=== PATIENT | female | born 1960 | race African-American/Black ===

== ENCOUNTER 2016-10-06 16:25 | Inpatient (IN) | payer MEDICARE, OTHER ==
--- NOTE | ~2016-10-06 | DS ---
Discharge Summary [facility] [address] [place]. [address] NAME: SUMAN PEREZ : 62 STATUS : DIS IN PAT#: [id number] AGE: 56 ADM/REG DATE : 10/06/16 MR#: [id number] REPORT SERV DATE: 10/27/16 DICTATED BY: ZOEY BRIDGES DATE: 10/26/16 REPORT STATUS : Draft TRANSCRIBED BY: CHELSY DATE: 10/26/16 Data Collection from hospitalization DISCHARGE DIAGNOSES: 1. End-stage renal disease. 2. Anemia. 3. Nausea and vomiting-resolved. 4. Clostridium difficile. 5. Angioedema-presumed secondary to Augmentin. 6. Diabetes. 7. Hypertension. 8. Recent neck abscess status post incision and drainage. 9. Congestive heart failure-ejection fraction 30%. 10.Gastroparesis. CONSULTATIONS: Dr. Wiliam Marie. NEDA Sinclair. Dr. Serg Estrella. Dr. Josr Zimmerman. PROCEDURES PERFORMED: 1. Colonoscopy, 10/12/2016. 2. Upper GI endoscopy, 10/12/2016. 3. CT scan of the abdomen and pelvis without contrast, 10/09/2016. PATHOLOGY: Esophagus biopsy-squamocolumnar junctional mucosa with mild chronic inflammation of the columnar component. No intestinal metaplasia or dysplasia. DISCHARGE MEDICATIONS: Norvasc 5 mg daily as instructed; Halfprin 81 mg daily; Lipitor 20 mg at bedtime; Coreg 12.5 mg twice a day as instructed; Pletal 50 mg twice a day; Lanoxin 0.125 mg on Tuesday, Tuesday, and Tuesday as instructed; Flonase nasal spray two sprays in each nostril daily; NovoLog injection insulin as instructed; Reglan 5 mg at 7:30 a.m., noon, and 5:30 p.m.; Mycostatin topical powder as directed topically three times a day; Protonix 40 mg at 6:30 a.m. and 4:30 p.m.; Requip 2 mg at bedtime; Stresstabs one tablet daily; Flagyl 500 mg every eight hours-stop, 10/26/2016; Levemir 20 units subcutaneously daily as instructed; Levemir 10 units subcutaneously at bedtime as instructed; Combivent one puff via inhaler twice a day; DuoNeb inhaled solution one nebulized inhaler at 8 a.m., noon, 5 p.m., and 9 p.m.; heparin 5000 units as instructed. CONDITION AT DISCHARGE: Stable. DISPOSITION: The patient was discharged to [facility] on a soft/diabetic/renal diet with activities as instructed. She would follow up with Dr. Zimmerman two weeks following discharge regarding scalp abscess at open wound. HOSPITAL COURSE: This is a 56-year-old female, who has end-stage renal disease and dialyzes on Mondays, Wednesdays, and Fridays. She presented to the clinic with lip swelling on the day of this admission. She had recently been at [facility] with a neck abscess and underwent drainage by Dr. Hinton. Infectious Disease had seen the patient and she was sent out on Augmentin, and it was felt that this may be the cause/culprit for the Discharge Summary [address] [address] NAME: SUMAN PEREZ : 62 STATUS : DIS IN PAT#: [id number] AGE: 56 ADM/REG DATE : 10/06/16 MR#: [id number] REPORT SERV DATE: 10/27/16 DICTATED BY: ZOEY BRIDGES DATE: 10/26/16 REPORT STATUS : Draft TRANSCRIBED BY: CHELSY DATE: 10/26/16 angioedema. She did experience some slight shortness of breath, but no wheezing. O2 saturations were stable. Given the significant angioedema, she was admitted to the hospital for further evaluation and treatment. Upon admission, she was started on Solu-Medrol and Benadryl. The following day, she was seen by Dr. Wiliam Marie regarding the angioedema, possibly secondary to a reaction to Augmentin. Her angioedema worsened after admission here and she had been transferred to the CCU. She was given epinephrine and Solu-Medrol and had marked improvement overnight. She did not report any fevers or chills. She said her neck wounds were feeling better. White blood cell count was now 13.9 after receiving steroids. It was felt this certainly possibly could be a delayed reaction to Augmentin with regard to the recent admission at [facility] for a neck abscess. He did not believe she really needed further systemic antibiotics as she was two weeks out from her surgical drainage of the abscess and examination of the wound did not show evidence of significant ongoing infection or need for further antibiotics. It was felt she would need ongoing good wound care. She was also seen by Dr. Serg Estrella. She had received IV Solu-Medrol during the night she had been placed on sliding scale insulin. She received IV Benadryl. Epinephrine had also been given. Her Augmentin had been stalked. She had been placed on strict n.p.o. status. It was felt that she would need a swallow evaluation. Later that day, she said she was feeling much better. She had no significant shortness of breath. She received one unit of blood. She was seen by Dr. Evangelista Zimmerman. The patient had undergone incision and drainage of neck abscess on 09/23/2016. There was concern due to her elevated white blood cell count. The abscess seemed to have been well drained. She was going to follow up as scheduled with Dr. Zimmerman. On the , hemodialysis therapy was performed. She was transfused one unit of packed red blood cells. She did have some swelling of her tongue. She did receive a dose of Solu- Medrol. Benadryl was also given. On 10/09/2016, she complained of some abdominal pain and belching. She did have some nausea. She did have a bowel movement. She was felt to be improving daily. On the , her nausea had improved. Her appetite was better. Her abdominal pain had improved as well. Her lip swelling had improved. Proton pump inhibitor was continued. On 10/11/2016, she was seen by Sourav Crabtree for evaluation and management of anemia and Hemoccult-positive stool. One of two stools were found to be Hemoccult positive. She denied any obvious signs of GI bleeding. She had no melena or hematochezia. She had undergone an EGD in the past. She said findings including gastroparesis which she can typically manage with Reglan and diet modification. She did have some abdominal pain. She said she was feeling better at this time. It was felt that she would need to undergo an EGD and colonoscopy. She agreed to proceed. The next day, she was taken to the endoscopic suite, where she underwent colonoscopy by Dr. Chester Watts. The preparation of the colon was poor. There were multiple 5-9 mm nonbleeding polyps in the sigmoid colon and the descending colon and in the ascending colon. Resection was not attempted given the exceedingly poor prep and unsatisfactorily visualization. The exam was otherwise normal on direct and retroflexion views. The exam was suboptimal due to patient's preparation. Dr. Watts also performed an upper GI endoscopy, impression included LA grade B esophagitis- oozing blood, this was biopsied. There was hematin-altered blood/coffee ground-like material-in the gastric fundus. The examination was otherwise normal. She had been Discharge Summary [address] [address] NAME: SUMAN PEREZ : 62 STATUS : DIS IN PAT#: [id number] AGE: 56 ADM/REG DATE : 10/06/16 MR#: [id number] REPORT SERV DATE: 10/27/16 DICTATED BY: ZOEY BRIDGES DATE: 10/26/16 REPORT STATUS : Draft TRANSCRIBED BY: CHELSY DATE: 10/26/16 evaluated by Physical Therapy and Occupational Therapy. On postop day 1, Levemir had been decreased. Heparin was held. Evening Levemir was decreased. Stool was checked for blood and C difficile. On the , she continued to improve. She had mild edema. She was found to be C difficile positive. The drain was removed from her neck. The wound was healing well. She did receive a dose of Diflucan. Flagyl was also given. Discharge planning was performed. On 10/16/2016, she was alert and cooperative. She had good pain control. She had no edema. Discharge instructions were given. Flagyl was continued. Due to her improved and stable condition, she was discharged to [facility] with the above- stated instructions. Information collected by: Ling Abdul I submit the above information as my discharge summary. ANA LILIA/CHELSY Zoey Bridges M.D. / [id number] CC: Jay Concepcion, M.D. [place] Gutierrez M.D. Destin Griffin-Trussell, [facility]
--- NOTE | ~2016-10-06 | EGD ---
EGD REPORT [facility] [address] [place] [address] NAME: SUMAN PEREZ : 62 STATUS : ADM IN PAT#: [id number] AGE: 56 ADM/REG DATE : 10/06/16 MR#: [id number] REPORT SERV DATE: 10/12/16 DICTATED BY: CHESTER SCHWAB DATE: 10/12/16 REPORT STATUS : Draft [facility]ANSCRIBED [facility]: [facility] DATE: 10/12/16 Endoscopy Center Patient Name: Suman Perez Date of : 1960 Attending MD: CHESTER SCHWAB MD Procedure Date No Time: 10/12/2016 Procedure: Upper GI endoscopy Indications: Anemia, Heme positive stool Referring MD: Casey Mora Medicines: Monitored Anesthesia Care Complications: No immediate complications. Estimated blood loss: Minimal. Procedure: Pre-Anesthesia Assessment: - ASA Grade Assessment: III - A patient with severe systemic disease. After obtaining informed consent, the endoscope was passed under direct vision. Throughout the procedure, the patient's blood pressure, pulse, and oxygen saturations were monitored continuously. The GIF [id number] was introduced through the mouth, and advanced to the second part of duodenum. The upper GI endoscopy was accomplished without difficulty. The patient tolerated the procedure well. Findings: LA Grade B (one or more mucosal breaks greater than 5 mm, not extending between the tops of two mucosal folds) esophagitis with bleeding was found at the gastroesophageal junction. Biopsies were taken with a cold forceps for histology. Estimated blood loss was minimal. Hematin (altered blood/chzgph-ghzpad-cuxn material) was found in the gastric fundus. The examined duodenum was normal. The exam was otherwise without abnormality. Impression: - LA Grade B esophagitis - Oozing blood. Biopsied. - Hematin (altered blood/fqmhrt-hxaeda-uwlx material) in the gastric fundus. - The examination was otherwise normal. Recommendation: - Return patient to [facility] for ongoing care. - Soft diet today. - Use Protonix (pantoprazole) 40 mg PO BID for 4 weeks. - Await pathology results. Procedure Code(s): --- Professional --- EGD REPORT [facility] [address] [place]. [address] NAME: SUMAN PEREZ : 62 STATUS : ADM IN [facility]#: [id number] AGE: 56 ADM/REG DATE : 10/06/16 MR#: [id number] REPORT SERV DATE: 10/12/16 DICTATED BY: CHESTER SCHWAB DATE: 10/12/16 REPORT STATUS : Draft TRANSCRIBED BY: [employer] DATE: 10/12/16 [id number], Esophagogastroduodenoscopy, flexible, transoral; with biopsy, single or multiple Diagnosis Code(s): --- Professional --- K20.9, Esophagitis, unspecified K92.2, Gastrointestinal hemorrhage, unspecified D64.9, Anemia, unspecified R19.5, Other fecal abnormalities CPT copyright 2013 [employer]. All rights reserved. The codes documented in this report are preliminary and upon want ad clerk review may be revised to meet current compliance requirements. Chester Schwab MD CHESTER SCHWAB MD 10/12/2016 11:40 AM This report has been signed electronically. Number of Addenda: 0 Note Initiated On: 10/12/2016 9:47 AM Scope Withdrawal Time 0 hours 0 minutes 0 seconds [address] [place] [address]
--- NOTE | ~2016-10-06 | CN ---
Consultation Report [facility] [address] [place]. [address] NAME: SUMAN PEREZ : 62 STATUS : ADM IN PAT#: [id number] AGE: 56 ADM/REG DATE : 10/06/16 MR#: [id number] REPORT SERV DATE: 10/07/16 DICTATED BY: MARIMAR MARIE DATE: 10/07/16 REPORT STATUS : Draft TRANSCRIBED BY: MODL DATE: 10/07/16 INFECTIOUS DISEASE CONSULTATION DATE OF CONSULTATION: 10/07/2016 REASON FOR CONSULTATION: Angioedema, possibly secondary to reaction to Augmentin. HISTORY OF PRESENT ILLNESS: This is a 56-year-old female with past medical history notable for end-stage renal disease on chronic dialysis along with diabetes, hypertension, coronary artery disease. She was admitted to [facility] on 09/22/2016 with an abscess of her posterior neck and occipital area. She underwent incision and drainage by Dr. Zimmerman and his surgical asst on 09/23/2016, and a repeat procedure on 09/28/2016 because of hematoma. Cultures grew just an anaerobic gram-negative becky, not identified along with some coagulase negative Staph. When she was discharged on 10/01/2016, she was prescribed Augmentin and went to a local rehab facility. While on dialysis yesterday, she was noted to be developing marked swelling of her lips and tongue, and was sent here for admission. Her angioedema worsened while after admission here and she was transferred to the CCU. She was given epinephrine and Solu-Medrol and has had marked improvement overnight. She reports no fevers or chills. The neck wounds, she says are feeling better. PAST MEDICAL HISTORY: In addition to the above is notable for coronary artery bypass surgery along with diabetic gastroparesis and renal osteodystrophy. She also has a chronic skin condition, which has been biopsied by Dermatology in the past, separate from this more acute abscess problem. ALLERGIES: LISTED ARE MORPHINE, PROMETHAZINE, AND STADOL ALONG WITH INTOLERANCE TO DEMEROL. MEDICATIONS: At the time of admission in addition to the Augmentin included Norvasc, DuoNeb, aspirin, vitamin B complex, folic acid, calcium carbonate, Coreg, Pletal, digoxin, insulin, Combivent, Cozaar, Reglan, Nasonex, Protonix, Requip, Crestor. SOCIAL HISTORY: Nonsmoker, nondrinker. FAMILY HISTORY: Noncontributory. REVIEW OF SYSTEMS: Otherwise, negative except she has had some loose stools 2 to 3 a day over the past week or so without significant abdominal pain or cramping. She is hungry this morning. She denies any shortness of breath. PHYSICAL EXAMINATION: VITAL SIGNS: The patient weighs 74 kg. She is afebrile. Blood pressure 107/60, pulse 75, respiratory rate 16. GENERAL: She is alert, no acute distress. Consultation Report [place] [id number] [facility] [place]. [address] NAME: SUMAN PEREZ : 62 STATUS : ADM IN [facility]#: [id number] AGE: 56 ADM/REG DATE : 10/06/16 MR#: [id number] REPORT SERV DATE: 10/07/16 DICTATED BY: MARIMAR MARIE DATE: 10/07/16 REPORT STATUS : Draft TRANSCRIBED BY: CHELSY DATE: 10/07/16 HEAD AND NECK: Shows edema of her lips and of her tongue, oral cavity is without thrush, and exam of the neck reveals a surgical wound with a [place] drain remaining in place with a little bit of drainage on the dressing that was over it in the lower occipital, upper cervical area with a smaller and more superficial wound at the base of the left posterior neck. There is no surrounding erythema. No significant induration or fluctuance. No tenderness to palpation around these wounds. LUNGS: Clear to auscultation. CARDIAC: Regular rate and rhythm. Normal S1, S2 with soft systolic ejection murmur, left sternal border. ABDOMEN: Soft and nontender. Bowel sounds are normal. EXTREMITIES: Show trace edema. SKIN: Shows multiple hyperpigmented chronic-appearing papules and nodules. LABORATORY STUDIES: White blood cell count yesterday was 9.6, today 13.9 after steroids, hemoglobin 7.9, platelets 392, hemoglobin A1c 10.2. Albumin 2.5, bilirubin 1.3. Alkaline phosphatase 251. Her alkaline phosphatase on 09/22/2016 was 346. Chest x-ray is negative. IMPRESSION: Angioedema, reaction, uncertain etiology. Certainly, this is possibly a delayed reaction to Augmentin. With regard to this recent admission at [facility] for the neck abscess, I do not believe she really needs further systemic antibiotics as she is two weeks out from her surgical drainage of the abscess and examination of the wounds today do not show evidence of significant ongoing infection in need of further antibiotics. I think she needs just ongoing good wound care. I discussed with Dr. Mcdonald who took care of her at [facility]. We will ask Dr. Zimmerman to reassess regarding the ongoing need or not for the Vikas drain. AGUS/CHELSY Marimar Marie M.D. / [id number] CC: Jay Concepcion M.D.
--- NOTE | ~2016-10-06 | EGD ---
EGD REPORT [facility] [address] [place]. [address] NAME: SUMAN PEREZ : 62 STATUS : ADM IN PAT#: [id number] AGE: 56 ADM/REG DATE : 10/06/16 MR#: [id number] REPORT SERV DATE: 10/12/16 DICTATED BY: CHESTER SCHWAB DATE: 10/12/16 REPORT STATUS : Draft TRANSCRIBED BY: [facility] DATE: 10/12/16 Endoscopy Center Patient Name: Suman Perez Date of : 1960 Attending MD: CHESTER SCHWAB MD Procedure Date No Time: 10/12/2016 Procedure: Colonoscopy Indications: Heme positive stool, Anemia Referring MD: Casey Mora Medicines: Monitored Anesthesia Care Complications: No immediate complications. Estimated blood loss: Minimal. Procedure: Pre-Anesthesia Assessment: - ASA Grade Assessment: III - A patient with severe systemic disease. After I obtained informed consent, the scope was passed under direct vision. Throughout the procedure, the patient's blood pressure, pulse, and oxygen saturations were monitored continuously. The CF [id number] was introduced through the anus and advanced to the cecum, identified by appendiceal orifice and ileocecal valve. The colonoscopy was technically difficult and complex due to unsatisfactory bowel prep. The patient tolerated the procedure well. The quality of the bowel preparation was poor. Findings: The perianal and digital rectal examinations were normal. Pertinent negatives include normal sphincter tone and no palpable rectal lesions. Multiple semi-sessile, non-bleeding polyps were found in the sigmoid colon, in the descending colon and in the ascending colon. The polyps were 5 to 9 mm in size. Polypectomy was not attempted due to inadequate bowel preparation and poor endoscopic visualization. The exam was otherwise without abnormality on direct and retroflexion views. Impression: - Preparation of the colon was poor. - Multiple 5 to 9 mm, non-bleeding polyps in the sigmoid colon, in the descending colon and in the ascending colon. Resection not attempted given the exccedingly poor prep and unsatisfactory visualization. - The examination was otherwise normal on direct and retroflexion views. - The exam was suboptimal due to patient preparation. EGD REPORT [address] [place]. [address] NAME: SUMAN PEREZ : 62 STATUS : ADM IN [facility]#: [id number] AGE: 56 ADM/REG DATE : 10/06/16 MR#: [id number] REPORT SERV DATE: 10/12/16 DICTATED BY: CHESTER SCHWAB DATE: 10/12/16 REPORT STATUS : Draft TRANSCRIBED BY: [employer] DATE: 10/12/16 Recommendation: - Return patient to [facility] for ongoing care. - Repeat colonoscopy in 3 months because the bowel preparation was poor and for retreatment. Procedure Code(s): --- Professional --- 51932, Colonoscopy, flexible, proximal to splenic flexure; diagnostic, with or without collection of specimen(s) by brushing or washing, with or without colon decompression (separate procedure) Diagnosis Code(s): --- Professional --- D12.5, Benign neoplasm of sigmoid colon D12.4, Benign neoplasm of descending colon D12.2, Benign neoplasm of ascending colon R19.5, Other fecal abnormalities D64.9, Anemia, unspecified CPT copyright 2013 [employer]. All rights reserved. The codes documented in this report are preliminary and upon jalousies installer review may be revised to meet current compliance requirements. Chester Schwab MD CHESTER SCHWAB MD 10/12/2016 11:36 AM This report has been signed electronically. Number of Addenda: 0 Note Initiated On: 10/12/2016 9:46 AM Scope Withdrawal Time 0 hours 11 minutes 38 seconds [address] [place] [id number]
--- NOTE | ~2016-10-06 | CN ---
Consultation Report [facility] [address] [place]. [address] NAME: SUMAN PEREZ : 62 STATUS : ADM IN [facility]#: [id number] AGE: 56 ADM/REG DATE : 10/06/16 MR#: [id number] REPORT SERV DATE: 10/11/16 DICTATED BY: JUDY JASON DATE: 10/11/16 REPORT STATUS : Draft TRANSCRIBED BY: MODAnamaria DATE: 10/11/16 GI CONSULTATION DATE OF CONSULTATION: 10/11/2016 REASON FOR CONSULTATION: Evaluation and management of anemia, Hemoccult-positive stools. HISTORY OF PRESENT ILLNESS: Ms. Perez is a 56-year-old, female patient who was admitted on the for lip swelling and shortness of breath, found to have angioedema, likely secondary to Augmentin. She is status post recent neck abscess and this is what she was taking the Augmentin for. She was seen at [facility] for the neck abscess and she was status post I and D by Dr. Hinton. She was in the ICU for a period of time. She does have a history of end-stage renal disease, on hemodialysis, as well as acute on chronic anemia. When she was admitted, she had a notable hemoglobin of 6.1. When she was discharged from [facility] early in September, she had a hemoglobin of 6.9. She has been found to be Hemoccult positive 1/2 stools. She denies any obvious signs of GI bleeding. No melena. No hematochezia. She states that she has had an EGD in the past with Dr. Mora at [place]. Findings on that exam, she states was gastroparesis which she typically can manage with Reglan and diet modification. She had some abdominal pain. During this hospitalization with nausea and vomiting, she underwent a CT scan of the abdomen and pelvis without contrast on the which from a GI perspective was nonrevealing. At present, she is feeling better. She is sitting up on the bedside, tolerating an 1800 calorie diabetic diet. I have discussed with her EGD colonoscopy. The risks, benefits, alternatives, and complications were detailed for her to include, but not limited to risk of bleeding, perforation, infection, reaction to medications, as well as cardiac and pulmonary side effects. She is agreeable to proceed. PAST MEDICAL HISTORY: Positive for end-stage renal disease, dialysis dependent, type 2 diabetes, hypertension, coronary artery disease, gastroparesis, recent abscess of the posterior neck and occipital area, status post incision and drainage on 09/23/2016 as well as repeat on 09/28/2016, coronary artery bypass grafting, renal osteodystrophy, mitral valve replacement, CHF with last ejection fraction calculated at 30%, AV fistula to the left arm, hypertension. SOCIAL HISTORY: Residing at [facility] presently. Denies tobacco, alcohol or illicit's. ALLERGIES: MORPHINE AND DEMEROL. FAMILY HISTORY: Noncontributory from a GI standpoint. HOME MEDICATIONS: DuoNeb, Norvasc, Augmentin, Halfprin, Renal softgels, Tums, Coreg, Pletal, Lanoxin, Levemir, Humalog, Combivent, Cozaar, Reglan, Nasonex, Protonix, Requip, and Crestor. Consultation Report [address] [address] NAME: SUMAN PEREZ : 62 STATUS : ADM IN [facility]#: [id number] AGE: 56 ADM/REG DATE : 10/06/16 MR#: [id number] REPORT SERV DATE: 10/11/16 DICTATED BY: JUDY JASON DATE: 10/11/16 REPORT STATUS : Draft TRANSCRIBED BY: CHELSY DATE: 10/11/16 REVIEW OF SYSTEMS: A 10-point review of systems has been obtained with pertinent positives being addressed in the history of present illness. PHYSICAL EXAMINATION: VITAL SIGNS: Temperature 98.2, pulse 70, respirations 16, blood pressure 147/62. NEURO: Alert, female, sitting up on the bedside with no obvious focal deficits. GENERAL: Cooperative. No apparent distress. Awake, alert, oriented x3. HEAD, EARS, EYES, NOSE, AND THROAT: Anicteric. Pupils equal, round, reactive to light and accommodation. Normocephalic and atraumatic. NECK: No JVD. LUNGS: Clear anteriorly with normal respiratory effort exhibited. Equal expansion. CARDIOVASCULAR SYSTEM: Regular rate and rhythm. S1, S2. No murmurs, rubs, gallops, S3 or S4 appreciated. ABDOMEN: Soft, nontender, nondistended with active bowel sounds in all four quadrants. No organomegaly appreciated. EXTREMITIES: Mild lower extremity edema. SKIN: Warm, dry, and intact. PERTINENT LABORATORY DATA: Sodium 137, potassium is 5, BUN is 54, creatinine is 5.86. White count 10.6, hemoglobin 8.4, hematocrit 25.7. She is status post two units of packed red blood cells. ASSESSMENT: 1. Anemia, acute on chronic. 2. Hemoccult-positive stools, one out of two. 3. Status post angioedema likely secondary to Augmentin. 4. End-stage renal disease, dialysis dependent. 5. Type 2 diabetes with diabetic gastroparesis diagnosis. 6. Status post abdominal pain, nausea and vomiting resolved. CT scan was negative. PLAN: 1. Schedule Zofran. 2. Restart her Reglan. 3. Bowel prep this afternoon. 4. EGD colonoscopy on the . 5. We will follow her labs. Transfuse her if needed. Other recommendations to follow her endoscopy. WANDA/CHELSY Judy Consultation Report [address] [place]. [address] NAME: SUMAN PEREZ : 62 STATUS : ADM IN [facility]#: [id number] AGE: 56 ADM/REG DATE : 10/06/16 MR#: [id number] REPORT SERV DATE: 10/11/16 DICTATED BY: JUDY JASON DATE: 10/11/16 REPORT STATUS : Draft TRANSCRIBED BY: CHELSY DATE: 10/11/16 NEDA Crabtree / [id number] CC: Hill Reid M.D.
--- NOTE | ~2016-10-06 | HP ---
History And Physical [place] [address] [facility] [place]. [address] NAME: SUMAN PEREZ : 62 STATUS : ADM IN [facility]#: [id number] AGE: 56 ADM/REG DATE : 10/06/16 MR#: [id number] REPORT SERV DATE: 10/06/16 DICTATED BY: DATE: REPORT STATUS : Draft TRANSCRIBED BY: MODL DATE: 10/06/16 DATE OF ADMISSION: 10/06/2016 CHIEF COMPLAINT: Lip swelling and shortness of breath. HISTORY OF PRESENT ILLNESS: Ms. Perez is a 56-year-old black female with end-stage renal disease, dialyzes Tuesday, Tuesday, and Tuesday on [address] and she presented to the clinic with lip swelling today. She has recently been at [facility] with a neck abscess, status post drainage by Dr. Hinton. ID had seen the patient and she was sent out on Augmentin and it is felt that that may be the cause/culprit for this angioedema. She is experiencing some slight shortness of breath. No wheezing. O2 saturations are stable. Given the significant angioedema, she is going to be admitted for further evaluation and treatment. PAST MEDICAL HISTORY: End-stage renal disease; diabetes; recent neck abscess, status post drainage; hypertension; AV fistula to the left arm; CHF with EF of 30%; gastroparesis; coronary artery disease, status post bypass and mitral valve replacement. ALLERGIES: MORPHINE AND DEMEROL. SOCIAL HISTORY: She is currently residing at [facility]. No tobacco, alcohol, or illicit drug use. MEDICATIONS: Levemir, Humalog, Tums, Reglan, Nasonex, Renal Cap, Combivent, clobetasol, Norvasc, digoxin, aspirin, Cozaar, Coreg, Crestor, Requip, Augmentin, DuoNeb, Zofran, Xanax, docusate, MiraLAX, and Benadryl. REVIEW OF SYSTEMS: A 12-point review of systems was obtained, negative with the exception of that in the HPI. PHYSICAL EXAMINATION: VITAL SIGNS: Temp 98, blood pressure 94/53, pulse 73, respiratory rate 16, and O2 saturation is 97% on room air. GENERAL: This is a pleasant, cooperative, black female. She is awake and alert. HEENT: Oral mucosa is moist. She is having some drooling. Her lips are quite large. Normocephalic and atraumatic. Conjunctivae are clear. Sclerae are anicteric. RESPIRATIONS: Even and unlabored. Breath sounds are coarse. HEART: Her heart rate is regular. No murmur, rub, or gallop. ABDOMEN: Soft and nontender. Bowel sounds active. No masses. No hepatosplenomegaly. No bruits. No CVA tenderness. BACK: Within normal limits. EXTREMITIES: With trace edema. SKIN: Warm, dry, and intact. She does have a rash to arms. She states that it started since taking antibiotics, it is a raised dark rash. NEURO: No focal deficits. Mood and affect, pleasant and appropriate. History And Physical [address] [address] NAME: SUMAN PEREZ : 62 STATUS : ADM IN [facility]#: [id number] AGE: 56 ADM/REG DATE : 10/06/16 MR#: [id number] REPORT SERV DATE: 10/06/16 DICTATED BY: DATE: REPORT STATUS : Draft TRANSCRIBED BY: MODL DATE: 10/06/16 PERTINENT LABS AND X-RAYS: Not available. IMPRESSION: 1. Angioedema felt secondary to Augmentin. 2. Recent neck abscess, status post incision and drainage. 3. End-stage renal disease. 4. Diabetes. 5. Hypertension. 6. Coronary artery disease, status post bypass and mitral valve replacement. PLAN: Admit. She is going to begin Solu-Medrol and Benadryl. ID is to see and make recommendations about further antibiotic therapy. Dialysis per routine. Next HD is Tuesday. Further orders and recommendations pending clinical course. BRIDGETT/MODL NEDA Tay / [id number] CC: Jay Concepcion M.D.
[~2016-10-06 16:25] MED LIST: ASAB PO; CARASPUDL PO; COREG3 PO; COZAAR100 MG PO; DSS PO; FLONASE NAS; GLUCOTRO10 PO; HUMALOGPEN SC; LANTUS SC; LEVEMFLXPN SC; NORCO1 TA2 PO; NOVOPENMIX SC; PLETAL50 PO; PRIN5 PO; PROTONIX PO; REG10MGP OR; REGL PO; RENO CAPS PO; REQUIP2 PO; SODBICAR10 PO; TUMSROLL PO; X5 PO; ZOFRAN ODT4 MG PO
[2016-10-06] MEDS ORDERED: HUMALOG SC (17:07)
[2016-10-06] MEDS ORDERED: LEVEMIR SC (17:07)
[2016-10-06] MEDS ORDERED: PROTONIX PO (17:08)
[2016-10-06] MEDS ORDERED: NASONEX NAS (17:09)
[2016-10-06] MEDS ORDERED: TUMSROLL PO (17:09)
[2016-10-06] MEDS ORDERED: REG5 PO (17:09)
[2016-10-06] MEDS ORDERED: CILOSTAZOL50 MG PO (17:10)
[2016-10-06] MEDS ORDERED: NORV5 PO (17:10)
[2016-10-06] MEDS ORDERED: COMBIVENT RESPIM4 GM INH (17:10)
[2016-10-06] MEDS ORDERED: RENAL SFTGLS1 MG PO (17:10)
[2016-10-06] MEDS ORDERED: COZAAR100 MG PO (17:11)
[2016-10-06] MEDS ORDERED: COREG12 PO (17:11)
[2016-10-06] MEDS ORDERED: HALF81 PO (17:11)
[2016-10-06] MEDS ORDERED: LAN125 PO (17:12)
[2016-10-06] MEDS ORDERED: CRESTOR10 PO (17:13)
[2016-10-06] MEDS ORDERED: REQUIP2 PO (17:13)
[2016-10-06] MEDS ORDERED: AUG500 PO (17:15)
[2016-10-06] MEDS ORDERED: DUONEB INH (17:15)
[2016-10-06 17:47] LABS: BASOPHILS 0.8 %; BASOPHILS ABSOLUTE 0.08 10/3/uL (0.0-0.16); EOSINOPHILS 3.1 %; IMMATURE GRANULOCYTES 0.3 %; IMMATURE GRANULOCYTES ABSOLUTE 0.03 10/3/uL (0.0-0.11); LYMPHOCYTES 12.4 %; LYMPHOCYTES ABSOLUTE 1.19 10/3/uL (0.67-4.30); MEAN CORPUS HGB CONC 32.6 g/dL (32.0-36.0); MEAN CORPUSCULAR HEMOGLOB 29.5 pg (26.0-34.0); MEAN CORPUSCULAR VOLUME 90.3 fL (80-100); MEAN PLATELET VOLUME 9.5 fL (9.2-13.0); MONOCYTES 7.7 %; MONOCYTES ABSOLUTE 0.74 10/3/uL (0.21-1.20); NEUTROPHILS 75.7 %; NEUTROPHILS ABSOLUTE 7.29 10/3/uL (2.02-8.40)
[2016-10-06 17:50] LABS: HEMATOCRIT 18.7 % (36.0-48.0); HEMOGLOBIN 6.1 g/dL (12.0-16.0); MANUAL DIFF NO %; PLATELET COUNT 358 10/3/uL (150-400); RBC DISTRIBUTION WIDTH 18.6 % (12.0-16.0); RED CELL COUNT 2.07 10/6/uL (4.0-5.6); WHITE BLOOD CELLS 9.6 10/3/uL (4.5-10.5)
[2016-10-06 17:53] LABS: INTERNATIONAL NORMAL RATI 1.2 UNITS (-)
[2016-10-06 17:54] LABS: PROTIME (NOT ORD) 15.2 SEC (12.0-14.5)
[2016-10-06 18:04] LABS: CALCIUM, SERUM 8.4 MG/DL (8.5-10.4); CHLORIDE, SERUM 102 MMOL/L (96-112); POTASSIUM, SERUM 3.5 MMOL/L (3.5-5.3); SGOT(AST) 25 U/L (5-40); SGPT(ALT) 20 U/L (5-65); SODIUM, SERUM 142 MMOL/L (135-148); TOTAL BILIRUBIN 1.3 MG/DL (0-1.2); TOTAL PROTEIN 7.7 G/DL (6.0-8.5)
[2016-10-06 18:07] LABS: A/G RATIO 0.4 (0.7-1.9); ALBUMIN 2.3 G/DL (3.5-5.0); ALKALINE PHOSPHATASE 251 U/L (45-117); BUN (BLOOD UREA NITROGEN) 17 MG/DL (6-23); CO2 (CARBON DIOXIDE) 34 MMOL/L (24-34); CREATININE 3.14 MG/DL (0.55-1.02); GFR AFRICAN AMERICAN 18 ML/MIN (>=60); GFR NON AFRICAN AMERICAN 16 ML/MIN (>=60); GLOBULIN 5.4 G/DL (2.5-4.1); GLUCOSE, SERUM 76 MG/DL (60-99)
[2016-10-07 04:11] LABS: BASOPHILS 0.2 %; BASOPHILS ABSOLUTE 0.03 10/3/uL (0.0-0.16); EOSINOPHILS 0.1 %; EOSINOPHILS ABSOLUTE 0.02 10/3/uL (0.0-0.53); IMMATURE GRANULOCYTES 0.2 %; IMMATURE GRANULOCYTES ABSOLUTE 0.03 10/3/uL (0.0-0.11); LYMPHOCYTES 5.1 %; LYMPHOCYTES ABSOLUTE 0.71 10/3/uL (0.67-4.30); MEAN CORPUS HGB CONC 31.9 g/dL (32.0-36.0); MEAN CORPUSCULAR HEMOGLOB 28.3 pg (26.0-34.0); MEAN CORPUSCULAR VOLUME 88.9 fL (80-100); MEAN PLATELET VOLUME 9.6 fL (9.2-13.0); MONOCYTES ABSOLUTE 0.14 10/3/uL (0.21-1.20); NEUTROPHILS 93.4 %; NEUTROPHILS ABSOLUTE 12.96 10/3/uL (2.02-8.40); PLATELET COUNT 392 10/3/uL (150-400); RBC DISTRIBUTION WIDTH 19.1 % (12.0-16.0)
[2016-10-07 04:14] LABS: HEMATOCRIT 24.8 % (36.0-48.0); HEMOGLOBIN 7.9 g/dL (12.0-16.0); MANUAL DIFF NO %; RED CELL COUNT 2.79 10/6/uL (4.0-5.6); WHITE BLOOD CELLS 13.9 10/3/uL (4.5-10.5)
[2016-10-07 04:24] LABS: ALBUMIN 2.5 G/DL (3.5-5.0); CHLORIDE, SERUM 102 MMOL/L (96-112); CO2 (CARBON DIOXIDE) 30 MMOL/L (24-34); SODIUM, SERUM 141 MMOL/L (135-148)
[2016-10-07 04:26] LABS: BUN (BLOOD UREA NITROGEN) 25 MG/DL (6-23); GFR AFRICAN AMERICAN 14 ML/MIN (>=60); GFR NON AFRICAN AMERICAN 12 ML/MIN (>=60); GLUCOSE, SERUM 120 MG/DL (60-99); PHOSPHORUS, SERUM 3.3 MG/DL (2.5-4.5); POTASSIUM, SERUM 4.3 MMOL/L (3.5-5.3)
[2016-10-07 10:08] LABS: FREE T4 1.19 NG/DL (0.76-1.46)
[2016-10-07 16:06] LABS: HEMATOCRIT 23.3 % (36.0-48.0); HEMOGLOBIN 7.4 g/dL (12.0-16.0)
[2016-10-08 04:46] LABS: BASOPHILS 0.1 %; BASOPHILS ABSOLUTE 0.01 10/3/uL (0.0-0.16); EOSINOPHILS 0 %; HEMATOCRIT 22.1 % (36.0-48.0); HEMOGLOBIN 7.1 g/dL (12.0-16.0); IMMATURE GRANULOCYTES 0.3 %; IMMATURE GRANULOCYTES ABSOLUTE 0.03 10/3/uL (0.0-0.11); LYMPHOCYTES 7.3 %; LYMPHOCYTES ABSOLUTE 0.77 10/3/uL (0.67-4.30); MEAN CORPUS HGB CONC 32.1 g/dL (32.0-36.0); MEAN CORPUSCULAR HEMOGLOB 28.7 pg (26.0-34.0); MEAN CORPUSCULAR VOLUME 89.5 fL (80-100); MEAN PLATELET VOLUME 9.8 fL (9.2-13.0); MONOCYTES 3.8 %; NEUTROPHILS 88.5 %; NEUTROPHILS ABSOLUTE 9.41 10/3/uL (2.02-8.40); PLATELET COUNT 371 10/3/uL (150-400); RBC DISTRIBUTION WIDTH 19.6 % (12.0-16.0); RED CELL COUNT 2.47 10/6/uL (4.0-5.6); WHITE BLOOD CELLS 10.6 10/3/uL (4.5-10.5)
[2016-10-08 04:47] LABS: MANUAL DIFF NO %
[2016-10-08 05:09] LABS: A/G RATIO 0.5 (0.7-1.9); ALBUMIN 2.3 G/DL (3.5-5.0); CALCIUM, SERUM 8.7 MG/DL (8.5-10.4); CHLORIDE, SERUM 101 MMOL/L (96-112); CO2 (CARBON DIOXIDE) 29 MMOL/L (24-34); GLOBULIN 5.1 G/DL (2.5-4.1); POTASSIUM, SERUM 5.1 MMOL/L (3.5-5.3); SGOT(AST) 24 U/L (5-40); SGPT(ALT) 17 U/L (5-65); SODIUM, SERUM 138 MMOL/L (135-148); TOTAL PROTEIN 7.4 G/DL (6.0-8.5)
[2016-10-08 05:11] LABS: ALKALINE PHOSPHATASE 235 U/L (45-117); BUN (BLOOD UREA NITROGEN) 51 MG/DL (6-23); CREATININE 5.62 MG/DL (0.55-1.02); DIGOXIN 0.8 NG/ML (0.8-2.0); GFR AFRICAN AMERICAN 9 ML/MIN (>=60); GFR NON AFRICAN AMERICAN 8 ML/MIN (>=60); GLUCOSE, SERUM 197 MG/DL (60-99); PHOSPHORUS, SERUM 5.5 MG/DL (2.5-4.5); TOTAL BILIRUBIN 0.7 MG/DL (0-1.2)
[2016-10-09 06:25] LABS: BASOPHILS 0 %; EOSINOPHILS 0.1 %; EOSINOPHILS ABSOLUTE 0.01 10/3/uL (0.0-0.53); IMMATURE GRANULOCYTES 0.2 %; IMMATURE GRANULOCYTES ABSOLUTE 0.02 10/3/uL (0.0-0.11); LYMPHOCYTES 8.3 %; LYMPHOCYTES ABSOLUTE 0.84 10/3/uL (0.67-4.30); MEAN CORPUS HGB CONC 33.1 g/dL (32.0-36.0); MEAN CORPUSCULAR VOLUME 87.5 fL (80-100); MEAN PLATELET VOLUME 9.4 fL (9.2-13.0); MONOCYTES 3.3 %; MONOCYTES ABSOLUTE 0.33 10/3/uL (0.21-1.20); NEUTROPHILS 88.1 %; NEUTROPHILS ABSOLUTE 8.88 10/3/uL (2.02-8.40); PLATELET COUNT 374 10/3/uL (150-400); RBC DISTRIBUTION WIDTH 18.9 % (12.0-16.0); WHITE BLOOD CELLS 10.1 10/3/uL (4.5-10.5)
[2016-10-09 06:32] LABS: HEMOGLOBIN 8.6 g/dL (12.0-16.0); MANUAL DIFF NO %; RED CELL COUNT 2.97 10/6/uL (4.0-5.6)
[2016-10-09 06:39] LABS: A/G RATIO 0.4 (0.7-1.9); ALBUMIN 2.4 G/DL (3.5-5.0); ALKALINE PHOSPHATASE 240 U/L (45-117); CALCIUM, SERUM 8.5 MG/DL (8.5-10.4); CHLORIDE, SERUM 98 MMOL/L (96-112); CO2 (CARBON DIOXIDE) 27 MMOL/L (24-34); GLOBULIN 5.4 G/DL (2.5-4.1); POTASSIUM, SERUM 4.9 MMOL/L (3.5-5.3); SGOT(AST) 29 U/L (5-40); SGPT(ALT) 20 U/L (5-65); SODIUM, SERUM 135 MMOL/L (135-148); TOTAL PROTEIN 7.8 G/DL (6.0-8.5)
[2016-10-09 06:42] LABS: BUN (BLOOD UREA NITROGEN) 37 MG/DL (6-23); CREATININE 4.42 MG/DL (0.55-1.02); GFR AFRICAN AMERICAN 12 ML/MIN (>=60); GFR NON AFRICAN AMERICAN 11 ML/MIN (>=60); GLUCOSE, SERUM 285 MG/DL (60-99); TOTAL BILIRUBIN 1.5 MG/DL (0-1.2)
[2016-10-10 06:54] LABS: BASOPHILS 0.1 %; BASOPHILS ABSOLUTE 0.01 10/3/uL (0.0-0.16); EOSINOPHILS 2.5 %; EOSINOPHILS ABSOLUTE 0.27 10/3/uL (0.0-0.53); HEMATOCRIT 25.7 % (36.0-48.0); HEMOGLOBIN 8.4 g/dL (12.0-16.0); IMMATURE GRANULOCYTES 0.3 %; IMMATURE GRANULOCYTES ABSOLUTE 0.03 10/3/uL (0.0-0.11); LYMPHOCYTES 15.5 %; LYMPHOCYTES ABSOLUTE 1.64 10/3/uL (0.67-4.30); MEAN CORPUS HGB CONC 32.7 g/dL (32.0-36.0); MEAN CORPUSCULAR VOLUME 88.6 fL (80-100); MEAN PLATELET VOLUME 9.1 fL (9.2-13.0); MONOCYTES 5.7 %; NEUTROPHILS 75.9 %; NEUTROPHILS ABSOLUTE 8.06 10/3/uL (2.02-8.40); PLATELET COUNT 353 10/3/uL (150-400); RBC DISTRIBUTION WIDTH 19.1 % (12.0-16.0); WHITE BLOOD CELLS 10.6 10/3/uL (4.5-10.5)
[2016-10-10 07:03] LABS: MANUAL DIFF NO %
[2016-10-10 07:05] LABS: ALBUMIN 2.4 G/DL (3.5-5.0); BUN (BLOOD UREA NITROGEN) 54 MG/DL (6-23); CALCIUM, SERUM 8.5 MG/DL (8.5-10.4); CHLORIDE, SERUM 97 MMOL/L (96-112); CO2 (CARBON DIOXIDE) 27 MMOL/L (24-34); CREATININE 5.86 MG/DL (0.55-1.02); GFR AFRICAN AMERICAN 9 ML/MIN (>=60); GFR NON AFRICAN AMERICAN 7 ML/MIN (>=60); GLUCOSE, SERUM 122 MG/DL (60-99); PHOSPHORUS, SERUM 2.6 MG/DL (2.5-4.5); SODIUM, SERUM 137 MMOL/L (135-148)
[2016-10-11 14:19] LABS: BASOPHILS 0.2 %; BASOPHILS ABSOLUTE 0.02 10/3/uL (0.0-0.16); EOSINOPHILS 4.4 %; EOSINOPHILS ABSOLUTE 0.42 10/3/uL (0.0-0.53); HEMOGLOBIN 8.6 g/dL (12.0-16.0); IMMATURE GRANULOCYTES 0.2 %; IMMATURE GRANULOCYTES ABSOLUTE 0.02 10/3/uL (0.0-0.11); LYMPHOCYTES 12.9 %; LYMPHOCYTES ABSOLUTE 1.23 10/3/uL (0.67-4.30); MEAN CORPUSCULAR HEMOGLOB 29.3 pg (26.0-34.0); MEAN PLATELET VOLUME 13.6 fL (9.2-13.0); MONOCYTES 3.8 %; MONOCYTES ABSOLUTE 0.36 10/3/uL (0.21-1.20); NEUTROPHILS 78.5 %; PLATELET COUNT 395 10/3/uL (150-400); RED CELL COUNT 2.94 10/6/uL (4.0-5.6); WHITE BLOOD CELLS 9.6 10/3/uL (4.5-10.5)
[2016-10-11 14:20] LABS: HEMATOCRIT 35.3 % (36.0-48.0); MANUAL DIFF NO %; MEAN CORPUS HGB CONC 24.4 g/dL (32.0-36.0); MEAN CORPUSCULAR VOLUME 120.1 fL (80-100); RBC DISTRIBUTION WIDTH 28.7 % (12.0-16.0)
[2016-10-11 14:37] LABS: ANISOCYTOSIS 4+ (>50/OIF) (0-5/OIF); PLATELET ESTIMATE ADQ (ADEQUATE)
[2016-10-11 14:38] LABS: SCHISTOCYTES OCC (0-2/OIF)
[2016-10-11 14:39] LABS: ALBUMIN 2.4 G/DL (3.5-5.0); CALCIUM, SERUM 8.3 MG/DL (8.5-10.4); CHLORIDE, SERUM 100 MMOL/L (96-112); CO2 (CARBON DIOXIDE) 28 MMOL/L (24-34); CREATININE 5.78 MG/DL (0.55-1.02); GFR AFRICAN AMERICAN 9 ML/MIN (>=60); GFR NON AFRICAN AMERICAN 8 ML/MIN (>=60); POTASSIUM, SERUM 4.8 MMOL/L (3.5-5.3); SODIUM, SERUM 138 MMOL/L (135-148); VANCOMYCIN TROUGH 11.2 MCG/ML (10.0-20.0)
[2016-10-11 14:42] LABS: BUN (BLOOD UREA NITROGEN) 59 MG/DL (6-23); GLUCOSE, SERUM 167 MG/DL (60-99); PHOSPHORUS, SERUM 1.5 MG/DL (2.5-4.5)
[2016-10-12 06:36] LABS: BASOPHILS 0.2 %; BASOPHILS ABSOLUTE 0.02 10/3/uL (0.0-0.16); EOSINOPHILS 6.1 %; EOSINOPHILS ABSOLUTE 0.54 10/3/uL (0.0-0.53); HEMATOCRIT 26.7 % (36.0-48.0); HEMOGLOBIN 8.7 g/dL (12.0-16.0); IMMATURE GRANULOCYTES 0.2 %; IMMATURE GRANULOCYTES ABSOLUTE 0.02 10/3/uL (0.0-0.11); LYMPHOCYTES 14.4 %; LYMPHOCYTES ABSOLUTE 1.28 10/3/uL (0.67-4.30); MANUAL DIFF NO %; MEAN CORPUS HGB CONC 32.6 g/dL (32.0-36.0); MEAN CORPUSCULAR HEMOGLOB 29.5 pg (26.0-34.0); MEAN CORPUSCULAR VOLUME 90.5 fL (80-100); MEAN PLATELET VOLUME 9.1 fL (9.2-13.0); MONOCYTES 5.7 %; MONOCYTES ABSOLUTE 0.51 10/3/uL (0.21-1.20); NEUTROPHILS 73.4 %; NEUTROPHILS ABSOLUTE 6.51 10/3/uL (2.02-8.40); PLATELET COUNT 339 10/3/uL (150-400); RBC DISTRIBUTION WIDTH 19.7 % (12.0-16.0); RED CELL COUNT 2.95 10/6/uL (4.0-5.6); WHITE BLOOD CELLS 8.9 10/3/uL (4.5-10.5)
[2016-10-12 06:41] LABS: INTERNATIONAL NORMAL RATI 1.2 UNITS (-); PROTIME (NOT ORD) 15.5 SEC (12.0-14.5)
[2016-10-12 06:57] LABS: ALBUMIN 2.4 G/DL (3.5-5.0); CALCIUM, SERUM 8.5 MG/DL (8.5-10.4); CHLORIDE, SERUM 103 MMOL/L (96-112); CO2 (CARBON DIOXIDE) 28 MMOL/L (24-34); PHOSPHORUS, SERUM 1.6 MG/DL (2.5-4.5); POTASSIUM, SERUM 5.6 MMOL/L (3.5-5.3); SODIUM, SERUM 138 MMOL/L (135-148)
[2016-10-12 06:58] LABS: BUN (BLOOD UREA NITROGEN) 41 MG/DL (6-23); CREATININE 5.17 MG/DL (0.55-1.02); GFR AFRICAN AMERICAN 10 ML/MIN (>=60); GFR NON AFRICAN AMERICAN 9 ML/MIN (>=60); GLUCOSE, SERUM 90 MG/DL (60-99)
[2016-10-13 15:34] LABS: BASOPHILS 0.2 %; BASOPHILS ABSOLUTE 0.02 10/3/uL (0.0-0.16); EOSINOPHILS 7.3 %; EOSINOPHILS ABSOLUTE 0.63 10/3/uL (0.0-0.53); HEMOGLOBIN 9.5 g/dL (12.0-16.0); IMMATURE GRANULOCYTES 0.1 %; IMMATURE GRANULOCYTES ABSOLUTE 0.01 10/3/uL (0.0-0.11); LYMPHOCYTES 12.1 %; LYMPHOCYTES ABSOLUTE 1.04 10/3/uL (0.67-4.30); MEAN CORPUS HGB CONC 31.5 g/dL (32.0-36.0); MEAN CORPUSCULAR HEMOGLOB 29.1 pg (26.0-34.0); MEAN CORPUSCULAR VOLUME 92.4 fL (80-100); MONOCYTES ABSOLUTE 0.43 10/3/uL (0.21-1.20); NEUTROPHILS 75.3 %; NEUTROPHILS ABSOLUTE 6.49 10/3/uL (2.02-8.40); PLATELET COUNT 323 10/3/uL (150-400); RBC DISTRIBUTION WIDTH 20.2 % (12.0-16.0); RED CELL COUNT 3.27 10/6/uL (4.0-5.6); WHITE BLOOD CELLS 8.6 10/3/uL (4.5-10.5)
[2016-10-13 15:39] LABS: HEMATOCRIT 30.2 % (36.0-48.0); MANUAL DIFF NO %
[2016-10-13 15:54] LABS: ALBUMIN 2.7 G/DL (3.5-5.0); BUN (BLOOD UREA NITROGEN) 39 MG/DL (6-23); CALCIUM, SERUM 8.8 MG/DL (8.5-10.4); CHLORIDE, SERUM 104 MMOL/L (96-112); CO2 (CARBON DIOXIDE) 26 MMOL/L (24-34); GFR AFRICAN AMERICAN 10 ML/MIN (>=60); GFR NON AFRICAN AMERICAN 8 ML/MIN (>=60); GLUCOSE, SERUM 127 MG/DL (60-99); POTASSIUM, SERUM 5.6 MMOL/L (3.5-5.3); SODIUM, SERUM 138 MMOL/L (135-148)
[2016-10-15 18:18] LABS: BASOPHILS 0.3 %; BASOPHILS ABSOLUTE 0.02 10/3/uL (0.0-0.16); EOSINOPHILS 5.6 %; EOSINOPHILS ABSOLUTE 0.38 10/3/uL (0.0-0.53); HEMOGLOBIN 8.2 g/dL (12.0-16.0); IMMATURE GRANULOCYTES 0.3 %; IMMATURE GRANULOCYTES ABSOLUTE 0.02 10/3/uL (0.0-0.11); LYMPHOCYTES 23.8 %; LYMPHOCYTES ABSOLUTE 1.62 10/3/uL (0.67-4.30); MANUAL DIFF NO %; MEAN CORPUS HGB CONC 32.8 g/dL (32.0-36.0); MEAN CORPUSCULAR HEMOGLOB 29.8 pg (26.0-34.0); MEAN CORPUSCULAR VOLUME 90.9 fL (80-100); MONOCYTES 7.8 %; MONOCYTES ABSOLUTE 0.53 10/3/uL (0.21-1.20); NEUTROPHILS 62.2 %; NEUTROPHILS ABSOLUTE 4.23 10/3/uL (2.02-8.40); PLATELET COUNT 231 10/3/uL (150-400); RED CELL COUNT 2.75 10/6/uL (4.0-5.6); WHITE BLOOD CELLS 6.8 10/3/uL (4.5-10.5)
[2016-10-15 18:36] LABS: ALBUMIN 2.4 G/DL (3.5-5.0); CALCIUM, SERUM 8.2 MG/DL (8.5-10.4); CHLORIDE, SERUM 106 MMOL/L (96-112); CO2 (CARBON DIOXIDE) 27 MMOL/L (24-34); CREATININE 5.66 MG/DL (0.55-1.02); GFR AFRICAN AMERICAN 9 ML/MIN (>=60); GFR NON AFRICAN AMERICAN 8 ML/MIN (>=60); POTASSIUM, SERUM 5.5 MMOL/L (3.5-5.3); SODIUM, SERUM 139 MMOL/L (135-148)
[2016-10-15 18:42] LABS: BUN (BLOOD UREA NITROGEN) 48 MG/DL (6-23); GLUCOSE, SERUM 167 MG/DL (60-99); PHOSPHORUS, SERUM 0.8 MG/DL (2.5-4.5)
[2016-10-16 06:41] LABS: BASOPHILS 0.6 %; BASOPHILS ABSOLUTE 0.04 10/3/uL (0.0-0.16); EOSINOPHILS 5.7 %; EOSINOPHILS ABSOLUTE 0.37 10/3/uL (0.0-0.53); HEMATOCRIT 27.3 % (36.0-48.0); HEMOGLOBIN 8.4 g/dL (12.0-16.0); LYMPHOCYTES ABSOLUTE 1.63 10/3/uL (0.67-4.30); MEAN CORPUSCULAR HEMOGLOB 28.6 pg (26.0-34.0); MEAN CORPUSCULAR VOLUME 92.9 fL (80-100); MONOCYTES 8.7 %; MONOCYTES ABSOLUTE 0.57 10/3/uL (0.21-1.20); NEUTROPHILS ABSOLUTE 3.92 10/3/uL (2.02-8.40); PLATELET COUNT 237 10/3/uL (150-400); RBC DISTRIBUTION WIDTH 19.2 % (12.0-16.0); RED CELL COUNT 2.94 10/6/uL (4.0-5.6); WHITE BLOOD CELLS 6.5 10/3/uL (4.5-10.5)
[2016-10-16 06:42] LABS: MANUAL DIFF NO %; MEAN CORPUS HGB CONC 30.8 g/dL (32.0-36.0)
[2016-10-16 06:51] LABS: ALBUMIN 2.4 G/DL (3.5-5.0); CHLORIDE, SERUM 104 MMOL/L (96-112); CO2 (CARBON DIOXIDE) 25 MMOL/L (24-34); POTASSIUM, SERUM 5.1 MMOL/L (3.5-5.3); SODIUM, SERUM 140 MMOL/L (135-148)
[2016-10-16 06:52] LABS: BUN (BLOOD UREA NITROGEN) 37 MG/DL (6-23); CREATININE 4.85 MG/DL (0.55-1.02); GFR AFRICAN AMERICAN 11 ML/MIN (>=60); GFR NON AFRICAN AMERICAN 9 ML/MIN (>=60); GLUCOSE, SERUM 278 MG/DL (60-99)
== END 2016-10-16 14:09 | DRG 915 ==
LOC: 2SO 16:25 → CCU 19:19 → 2SO 10-08 18:24
PROVIDERS: Internal Medicine Critical Care Medicine; Internal Medicine Gastroenterology; Internal Medicine Nephrology; Nurse Practitioner; Nurse Practitioner Family; Registered Nurse
PROC: 30233N1 Transfusion of Nonautologous Red Blood Cells into Peripheral Vein, Percutaneous Approach (ICD-10-PCS; 2016-10-06)
PROC: 5A1D60Z (ICD-10-PCS; 2016-10-09)
PROC: 0DBK8ZX Excision of Ascending Colon, Via Natural or Artificial Opening Endoscopic, Diagnostic (ICD-10-PCS; 2016-10-12)
PROC: 0DB48ZX Excision of Esophagogastric Junction, Via Natural or Artificial Opening Endoscopic, Diagnostic (ICD-10-PCS; 2016-10-12)
PROC: 0DB68ZX Excision of Stomach, Via Natural or Artificial Opening Endoscopic, Diagnostic (ICD-10-PCS; 2016-10-12)
PROC: 0DBM8ZX Excision of Descending Colon, Via Natural or Artificial Opening Endoscopic, Diagnostic (ICD-10-PCS; principal; 2016-10-12 07:30)
PROC: 0DBN8ZX Excision of Sigmoid Colon, Via Natural or Artificial Opening Endoscopic, Diagnostic (ICD-10-PCS; 2016-10-12 07:30)
DX: T78.3XXA Angioneurotic edema, initial encounter (principal); N18.6 End stage renal disease; A04.7 Enterocolitis due to Clostridium difficile; I12.0 Hypertensive chronic kidney disease with stage 5 chronic kidney disease or end stage renal disease; I50.22 Chronic systolic (congestive) heart failure; I13.0 Hypertensive heart and chronic kidney disease with heart failure and stage 1 through stage 4 chronic kidney disease, or unspecified chronic kidney disease; K92.1 Melena; L02.11 Cutaneous abscess of neck; E11.22 Type 2 diabetes mellitus with diabetic chronic kidney disease; E11.43 Type 2 diabetes mellitus with diabetic autonomic (poly)neuropathy; D12.5 Benign neoplasm of sigmoid colon; D12.2 Benign neoplasm of ascending colon; K20.8 Other esophagitis; K22.8 Other specified diseases of esophagus; D12.4 Benign neoplasm of descending colon; I25.10 Atherosclerotic heart disease of native coronary artery without angina pectoris; K31.84 Gastroparesis; D64.9 Anemia, unspecified; J44.9 Chronic obstructive pulmonary disease, unspecified; Z95.1 Presence of aortocoronary bypass graft; Z95.2 Presence of prosthetic heart valve; Z99.2 Dependence on renal dialysis; Z88.8 Allergy status to other drugs, medicaments and biological substances
CPT/HCPCS: 36415; 36600; 71010; 74176; 80053; 80069; 80162; 80202; 82272; 82330; 82803; 82947; 82962; 83036; 83735; 84100; 84132; 84295; 84439; 84443; 85014; 85018; 85025; 85610; 86850; 86900; 86901; 86920; 87493; 87493-59; 87641; 88305; 94640; 97110-GP; 97116-GP; 97161-GP; 97166-GO; A9270-GY; C9113; G0257; G8978-CJ-GP; G8979-CI-GP; G8987-CJ-GO; G8988-CI-GO; J0885; J1200; J2405; J2920; J3370; P9016; P9047